=== PATIENT | male | born 1950 | race Hispanic/Latino ===

== ENCOUNTER 2017-06-06 12:46 | Day surgery (SDC) | payer OTHER ==
[~2017-06-06] VITALS: Ht 165.1 cm; Wt 117.9 kg
[~2017-06-06 12:46] MED LIST: ADVIL200 MG PO; ERGOCALCIF50000 UNIT PO; KLOR-CON 1010 ME1 PO; LASIX40 MG PO; SYNTHROID100 MCG PO
[2017-06-06 13:15] VITALS: BP 123/57
[2017-06-06 13:16] LABS: BASOPHIL COUNT 0.1 K/uL (0-0.1); EOSINOPHIL (%) 2.1 % (0-5); EOSINOPHIL COUNT 0.2 K/uL (0-0.3); HEMATOCRIT 50.4 % (38.0-50.0); IMMATURE GRANULOCYTE (%) 0.6 % (0.0-0.7); IMMATURE GRANULOCYTE COUNT 0.1 K/uL; INSTRUMENT ABS NEUTROPHIL CT 5.3 K/uL; MCH 29.9 PG (29.0-34.0); MCHC 34.3 G/DL (30.0-36.0); MCV 87.2 FL (86-99); MEAN PLAT.VOLUME 10.5 uM^3 (9.0-12.4); MONOCYTE (%) 7.1 % (3-12); MONOCYTE COUNT 0.6 K/uL (0-0.8); NEUTROPHIL (%) 64.8 % (45-76); NEUTROPHIL COUNT 5.3 K/uL (1.8-6.4); PLATELET COUNT 183 K/uL (156-360); RBC DIS.WIDTH-CV 14.8 % (11.8-14.6); RBC DIS.WIDTH-SD 46.5 % (39-53); RED BLOOD COUNT 5.78 M/uL (4.00-5.50); WHITE BLOOD COUNT 8.2 K/uL (4.1-10.2)
[2017-06-06 13:23] LABS: INTER. NORMALIZED RATIO 1.1; PROTHROMBIN TIME 12.1 SEC (10.2-12.9)
[2017-06-06 13:26] LABS: PTT 30.6 SEC (25-37)
[2017-06-06 13:39] LABS: ANION GAP 10 MEQ/L (2-14); CHLORIDE 104 MEQ/L (99-109); POTASSIUM 4.7 MEQ/L (3.7-5.4); SAMPLE HEMOLYSIS CHECK 1; SAMPLE ICTERIC CHECK 0; SAMPLE LIPEMIA CHECK 0; SODIUM 141 MEQ/L (136-147); TOTAL BILIRUBIN 0.7 MG/DL (0.0-1.0)
[2017-06-06 13:44] LABS: ALKALINE PHOSPHATASE 76 IU/L (3-129); GFR ESTIMATE (CALCULATED) > 59 mL/min/; GLUCOSE 114 mg/dL (70-99); UREA NITROGEN (BUN) 21 mg/dL (9-23)
[2017-06-06] MEDS ORDERED: HYDROCODON-ACE1 EAC7 PO (16:34)
[2017-06-06] MEDS ORDERED: COLACE100 MG PO (16:34)
[2017-06-06 21:27] VITALS: BP 111/57
[2017-06-06 21:30] VITALS: BP 111/57
[2017-06-06 23:23] VITALS: BP 110/55
[2017-06-07 04:24] VITALS: BP 156/63
[2017-06-07 08:17] LABS: HEMATOCRIT 44.2 % (38.0-50.0); MCH 28.1 PG (29.0-34.0); MCHC 31.9 G/DL (30.0-36.0); MCV 88.2 FL (86-99); MEAN PLAT.VOLUME 10.4 uM^3 (9.0-12.4); PLATELET COUNT 152 K/uL (156-360); RBC DIS.WIDTH-CV 14.8 % (11.8-14.6); RBC DIS.WIDTH-SD 47.6 % (39-53); RED BLOOD COUNT 5.01 M/uL (4.00-5.50); WHITE BLOOD COUNT 8.3 K/uL (4.1-10.2)
[2017-06-07 08:49] LABS: ANION GAP 7 MEQ/L (2-14); CHLORIDE 103 MEQ/L (99-109); GFR ESTIMATE (CALCULATED) > 59 mL/min/; GLUCOSE 107 mg/dL (70-99); POTASSIUM 4.5 MEQ/L (3.7-5.4); SAMPLE HEMOLYSIS CHECK 0; SAMPLE ICTERIC CHECK 0; SAMPLE LIPEMIA CHECK 0; SODIUM 137 MEQ/L (136-147); UREA NITROGEN (BUN) 22 mg/dL (9-23)
[2017-06-07 12:45] VITALS: BP 147/75
[2017-06-07 13:51] VITALS: BP 148/75
[2017-06-07 16:41] VITALS: BP 117/58
[2017-06-07 21:21] VITALS: BP 149/67
[2017-06-08 00:18] LABS: HEMATOCRIT 42.2 % (38.0-50.0); MCH 28.8 PG (29.0-34.0); MCHC 32.7 G/DL (30.0-36.0); MCV 88.1 FL (86-99); MEAN PLAT.VOLUME 10.5 uM^3 (9.0-12.4); PLATELET COUNT 143 K/uL (156-360); RBC DIS.WIDTH-CV 14.5 % (11.8-14.6); RBC DIS.WIDTH-SD 46.6 % (39-53); RED BLOOD COUNT 4.79 M/uL (4.00-5.50); WHITE BLOOD COUNT 8.6 K/uL (4.1-10.2)
[2017-06-08 00:21] LABS: INTER. NORMALIZED RATIO 1.1; PROTHROMBIN TIME 12.2 SEC (10.2-12.9)
[2017-06-08 00:24] LABS: PTT 28.1 SEC (25-37)
[2017-06-08 00:25] LABS: CHLORIDE 103 mEq/L (99-109); POTASSIUM 4.3 mEq/L (3.7-5.4); SODIUM 137 mEq/L (136-147)
[2017-06-08 00:27] LABS: GLUCOSE 113 mg/dL (70-99)
[2017-06-08 00:28] LABS: ANION GAP 7 MEQ/L (2-14)
[2017-06-08 00:31] LABS: GFR ESTIMATE (CALCULATED) > 59 mL/min/; UREA NITROGEN (BUN) 22 mg/dL (9-23)
[2017-06-08 03:25] VITALS: BP 116/66
[2017-06-08 04:00] VITALS: BP 135/80
[2017-06-08 09:03] VITALS: BP 120/63
[2017-06-08 09:09] VITALS: BP 120/63
== END 2017-06-08 11:41 | disposition home or self-care (01) ==
LOC: SDC 12:46 → 2SOUTH 16:32 → ENRESERV 16:37 → 3EAST 21:24
PROVIDERS: Hospitalist; Thoracic Surgery (Cardiothoracic Vascular Surgery)
PROC: 0HB6XZZ Excision of Back Skin, External Approach (ICD-10-PCS; principal; 2017-06-06)
DX: L72.0 Epidermal cyst (principal); E03.9 Hypothyroidism, unspecified; L76.21 Postprocedural hemorrhage of skin and subcutaneous tissue following a dermatologic procedure
CPT/HCPCS: 80048; 80048 91; 80053; 85025; 85027; 85610; 85730; 86900; 86901; 87070; 87075; 87076; 87077; 87147; 87186; 87205; 88304; G0378; J0690; J1170; J1644; J1885; J2250; J2405; J3010; J7120